=== PATIENT | female | born 1945 | race Caucasian/White ===

== ENCOUNTER → 2016-06-03 | Outpatient (CLI) | payer MEDICARE, BC ==
[~2016-06-03] MED LIST: ASPI325T6 PO; FE-TABS325 MG PO; FEMARA PO; FLUOXETINE; FOLIC ACID0.4 MG PO; GLUCOPHAGE XR500 M1 PO; GLUCOPHAGE1000 MG PO; LEVAQUIN 5500 MG/TA1 PO; LEVOTHYROXINE PO; LORTAB 5/500 501 TAB PO; LORTAB 7.5/5001 TAB PO; METFORMIN500 MG PO; NORCO 325 MG-51 TAB PO; NORCO 325 MG-7.1 TAB PO; OXYCODONE; PHENERGAN 25 TA25 MG PO; PRAVACHOL 20MG20 MG PO; PRAVASTATIN20 MG PO; SYNTHROID 0.0.025 MG PO; SYNTHROID0.05 MG/TA PO; TIROSINT50 MCG PO; ULTRAM 50MG TAB50 MG PO; VALIUM 5MG T5 MG/TAB PO; VITAMIN C PO; ZOFRAN 4MG T4 MG/TAB PO
== END ==
LOC: MC.RAD 07:40
DX: Z12.31 Encounter for screening mammogram for malignant neoplasm of breast (principal); Z85.3 Personal history of malignant neoplasm of breast; Z90.11 Acquired absence of right breast and nipple

== ENCOUNTER 2016-07-15 06:39 | Day surgery (SDC) | payer MEDICARE, BC ==
[~2016-07-15] VITALS: Ht 165.1 cm; Wt 71.9 kg
[2016-07-15 08:12] VITALS: BP 125/71; PULSE 73; TEMP 98.1
[2016-07-15 09:40] VITALS: BP 123/80; PULSE 78; TEMP 98.1
[2016-07-15 09:55] VITALS: BP 136/78; PULSE 67
[2016-07-15 10:05] VITALS: BP 121/85; PULSE 60
[2016-07-15 10:20] VITALS: BP 146/81; PULSE 71
[2016-07-15 10:40] VITALS: BP 126/62; PULSE 72
== END 2016-07-15 11:33 | disposition home or self-care (01) ==
LOC: SDCO 06:39
DX: D12.0 Benign neoplasm of cecum (principal); D12.4 Benign neoplasm of descending colon; K63.5 Polyp of colon; K64.0 First degree hemorrhoids; R19.7 Diarrhea, unspecified; E11.9 Type 2 diabetes mellitus without complications; E03.9 Hypothyroidism, unspecified; K58.9 Irritable bowel syndrome, unspecified; Z86.010 Personal history of colon polyps
CPT/HCPCS: OP; J2405; J2704; J7030

== ENCOUNTER → 2017-04-09 | Outpatient (CLI) | payer MEDICARE, BC | LOC: COL.RAD 12:03 | DX: N28.1 Cyst of kidney, acquired (principal) ==

== ENCOUNTER → 2017-06-05 | Outpatient (CLI) | payer MEDICARE, BC | LOC: MC.RAD 06:57 | DX: Z12.31 Encounter for screening mammogram for malignant neoplasm of breast (principal) ==

== ENCOUNTER → 2017-12-30 | Outpatient (CLI) | payer MEDICARE, BC | LOC: COL.RAD 15:17 | PROVIDERS: Family Medicine | DX: T58.91XA Toxic effect of carbon monoxide from unspecified source, accidental (unintentional), initial encounter (principal) ==

== ENCOUNTER → 2018-05-06 | Outpatient (CLI) | payer MEDICARE, BC | LOC: COL.RAD 07:30 | DX: N28.1 Cyst of kidney, acquired (principal); R39.11 Hesitancy of micturition ==

== ENCOUNTER → 2018-06-08 | Outpatient (CLI) | payer MEDICARE, BC | LOC: MC.RAD 07:40 | DX: Z12.31 Encounter for screening mammogram for malignant neoplasm of breast (principal) | CPT/HCPCS: G0279 ==

== ENCOUNTER → 2018-06-23 | Outpatient (CLI) | payer MEDICARE, BC | LOC: MHCPAIN 08:02 | DX: G89.29 Other chronic pain (principal); M47.817 Spondylosis without myelopathy or radiculopathy, lumbosacral region; M54.16 Radiculopathy, lumbar region; M53.3 Sacrococcygeal disorders, not elsewhere classified | CPT/HCPCS: G0463 ==

== ENCOUNTER → 2018-06-23 | Outpatient (CLI) | payer MEDICARE, BC ==
[2018-06-23 10:05] LABS: BASO % 0.5 % (0.0-2.0); EOS # 0.3 (0.0-0.7); GRAN # 4.3 (1.4-6.5); GRAN % 65.4 % (42.2-75.2); HEMATOCRIT 43.6 % (37.0-47.0); HEMOGLOBIN 14.1 g/dl (12.5-16.0); LYMPH # 1.4 (1.2-3.4); LYMPH % 21.1 % (20.0-51.0); MEAN CELL VOLUME 95 fl (80.0-100.0); MEAN CORPUSCULAR HEMOGLOBIN 31 pg (27.0-31.0); MEAN CORPUSCULAR HGB CONC 32 g/dl (33.0-37.0); MEAN PLATELET VOLUME 9.8 fl (7.4-10.4); MONO # 0.5 (0.1-0.6); MONO % 7.8 % (1.7-9.3); PLATELET COUNT 331 K/mm3 (130-400); RED BLOOD COUNT 4.58 M/mm3 (4.10-5.30); REDCELL DISTRIBUTION WIDTH-CV 12.4 % (11.5-14.5)
[2018-06-23 10:39] LABS: ERYTHROCYTE SEDIMENTATION RATE 1 mm/hr (0-30)
== END ==
LOC: COL.LAB 09:34
DX: T84.84XA Pain due to internal orthopedic prosthetic devices, implants and grafts, initial encounter (principal); Z96.651 Presence of right artificial knee joint

== ENCOUNTER → 2018-06-30 | Outpatient (CLI) | payer MEDICARE, BC | LOC: COL.RAD 08:41 | DX: T84.84XA Pain due to internal orthopedic prosthetic devices, implants and grafts, initial encounter (principal); Z96.651 Presence of right artificial knee joint | CPT/HCPCS: A9503 ==

== ENCOUNTER → 2018-08-18 | Outpatient (CLI) | payer MEDICARE, BC | LOC: MHCPAIN 08:46 | DX: G89.29 Other chronic pain (principal); M47.817 Spondylosis without myelopathy or radiculopathy, lumbosacral region; M54.16 Radiculopathy, lumbar region; M53.3 Sacrococcygeal disorders, not elsewhere classified | CPT/HCPCS: G0463 ==

== ENCOUNTER → 2018-08-27 | Outpatient (CLI) | payer MEDICARE, BC | LOC: MHCPAIN 08:15 | DX: M47.817 Spondylosis without myelopathy or radiculopathy, lumbosacral region (principal); M54.16 Radiculopathy, lumbar region | CPT/HCPCS: J1100; Q9967 ==

== ENCOUNTER → 2018-09-08 | Outpatient (CLI) | payer MEDICARE, BC | LOC: MHCPAIN 09:49 | DX: G89.29 Other chronic pain (principal); M47.817 Spondylosis without myelopathy or radiculopathy, lumbosacral region; M54.16 Radiculopathy, lumbar region; M53.3 Sacrococcygeal disorders, not elsewhere classified | CPT/HCPCS: G0463 ==

== ENCOUNTER → 2018-09-14 | Outpatient (CLI) | payer MEDICARE, BC | LOC: MHCPAIN 12:27 | DX: M47.817 Spondylosis without myelopathy or radiculopathy, lumbosacral region (principal); M54.16 Radiculopathy, lumbar region | CPT/HCPCS: J1040; Q9967 ==

== ENCOUNTER → 2018-11-11 | Outpatient (CLI) | payer MEDICARE, BC | LOC: MHCPAIN 09:47 | DX: G89.29 Other chronic pain (principal); M47.817 Spondylosis without myelopathy or radiculopathy, lumbosacral region; M54.16 Radiculopathy, lumbar region; M53.3 Sacrococcygeal disorders, not elsewhere classified | CPT/HCPCS: G0463 ==

== ENCOUNTER → 2018-12-21 | Outpatient (CLI) | payer MEDICARE, BC | LOC: MHCPAIN 09:21 | DX: G89.29 Other chronic pain (principal); M47.817 Spondylosis without myelopathy or radiculopathy, lumbosacral region; M54.16 Radiculopathy, lumbar region; M53.3 Sacrococcygeal disorders, not elsewhere classified | CPT/HCPCS: G0463 ==

== ENCOUNTER → 2019-07-01 | Outpatient (CLI) | payer MEDICARE, BC | LOC: MC.RAD 08:32 | DX: Z12.31 Encounter for screening mammogram for malignant neoplasm of breast (principal); Z90.11 Acquired absence of right breast and nipple ==

== ENCOUNTER 2019-07-27 06:38 | Day surgery (SDC) | payer MEDICARE, BC ==
[~2019-07-27] VITALS: Ht 165.1 cm; Wt 75.0 kg
[2019-07-27 07:08] VITALS: BP 138/78; PULSE 92; TEMP 99.1
[2019-07-27] MEDS ORDERED: NORCO 325 MG-51 TAB PO (07:12)
[2019-07-27 09:15] VITALS: BP 131/107; PULSE 95
--- NOTE | 2019-07-27 09:15 | NUR ---
Patient returns to bay 2 per cart and is awake and alert. Transfers from cart to recliner with one person assist. IV fluids continue to infuse and site is free of redness. Denies pain or nausea and is sipping on diet Pepsi and eating muffin.
[2019-07-27 09:30] VITALS: BP 133/71; PULSE 79
--- NOTE | 2019-07-27 09:30 | NUR ---
Resting and eating muffin and sipping on soda.
[2019-07-27 09:55] VITALS: BP 131/107; PULSE 95
--- NOTE | 2019-07-27 10:05 | NUR ---
IV was discontinued and Dr. Alfonso here to talk with the patient. All questions answered. Patient dresses self.
--- NOTE | 2019-07-27 10:09 | NUR ---
Dismissal instructions given and signed. Patient voices understanding of these.
--- NOTE | 2019-07-27 10:12 | NUR ---
Patient dismissed to home per private vehicle driven spouse and taken to the front door per wheelchair and assisted into vehicle by this RN with dismissal instructions in hand.
== END 2019-07-27 10:12 | disposition home or self-care (01) ==
LOC: SDCO 06:38
DX: Z12.11 Encounter for screening for malignant neoplasm of colon (principal); Z86.010 Personal history of colon polyps; D12.0 Benign neoplasm of cecum; D12.2 Benign neoplasm of ascending colon; D12.3 Benign neoplasm of transverse colon; D12.5 Benign neoplasm of sigmoid colon; K64.0 First degree hemorrhoids; Z79.899 Other long term (current) drug therapy; E11.9 Type 2 diabetes mellitus without complications; E03.9 Hypothyroidism, unspecified; K58.9 Irritable bowel syndrome, unspecified; Z85.3 Personal history of malignant neoplasm of breast; Z88.0 Allergy status to penicillin; Z88.7 Allergy status to serum and vaccine; Z88.8 Allergy status to other drugs, medicaments and biological substances; F41.0 Panic disorder [episodic paroxysmal anxiety]; F41.9 Anxiety disorder, unspecified; M43.00 Spondylolysis, site unspecified
CPT/HCPCS: J2704; J7030

== ENCOUNTER → 2020-07-04 | Outpatient (CLI) | payer MEDICARE, BC | LOC: MC.RAD 08:00 | DX: Z12.31 Encounter for screening mammogram for malignant neoplasm of breast (principal) ==

== ENCOUNTER → 2020-11-21 | Outpatient (CLI) | payer MEDICARE, BC | LOC: MHCPAIN 10:19 | DX: M47.816 Spondylosis without myelopathy or radiculopathy, lumbar region (principal); M54.5 Low back pain; M53.3 Sacrococcygeal disorders, not elsewhere classified | CPT/HCPCS: G0463 ==

== ENCOUNTER → 2021-08-01 | Outpatient (CLI) | payer MEDICARE, BC | LOC: MC.RAD 06:55 | DX: Z12.31 Encounter for screening mammogram for malignant neoplasm of breast (principal) ==

== ENCOUNTER → 2021-08-15 | Outpatient (CLI) | payer MEDICARE, BC | LOC: MHCPAIN 12:41 | DX: M47.817 Spondylosis without myelopathy or radiculopathy, lumbosacral region (principal); M53.3 Sacrococcygeal disorders, not elsewhere classified; M54.50 Low back pain, unspecified; G89.29 Other chronic pain | CPT/HCPCS: G0463 ==

== ENCOUNTER → 2021-08-20 | Outpatient (CLI) | payer MEDICARE, BC | LOC: MHCPAIN 11:29 | DX: M47.817 Spondylosis without myelopathy or radiculopathy, lumbosacral region (principal); M54.50 Low back pain, unspecified; M53.3 Sacrococcygeal disorders, not elsewhere classified | CPT/HCPCS: J1040; Q9967 ==

== ENCOUNTER → 2021-08-29 | Outpatient (CLI) | payer MEDICARE, BC | LOC: MHCPAIN 13:13 | DX: M47.817 Spondylosis without myelopathy or radiculopathy, lumbosacral region (principal); M53.3 Sacrococcygeal disorders, not elsewhere classified; G89.29 Other chronic pain | CPT/HCPCS: G0463 ==

== ENCOUNTER 2021-10-10 14:08 | Outpatient (RCR) | payer MEDICARE, BC | END 2021-10-23 | disposition home or self-care (01) | LOC: WSPT | DX: M47.896 Other spondylosis, lumbar region (principal) ==

== ENCOUNTER → 2021-11-22 | Outpatient (RCR) | payer MEDICARE, BC | END | disposition still patient (30) | LOC: WSPT | DX: M47.896 Other spondylosis, lumbar region (principal) ==

== ENCOUNTER 2021-12-11 12:45 | Outpatient (RCR) | payer MEDICARE, BC | END 2021-12-23 | disposition home or self-care (01) | LOC: WSPT | DX: M47.896 Other spondylosis, lumbar region (principal) ==

== ENCOUNTER 2022-01-21 15:00 | Outpatient (RCR) | payer MEDICARE, BC | END 2022-01-23 | disposition home or self-care (01) | LOC: WSPT | DX: M47.896 Other spondylosis, lumbar region (principal) ==

== ENCOUNTER 2022-01-24 10:13 | Outpatient (RCR) | payer MEDICARE, BC | END 2022-01-24 14:00 | disposition home or self-care (01) | LOC: WSPT 10:13 | DX: M47.896 Other spondylosis, lumbar region (principal) ==

== ENCOUNTER 2022-07-30 07:01 | Day surgery (SDC) | payer MEDICARE, BC ==
[~2022-07-30] VITALS: Ht 165.1 cm; Wt 75.1 kg
[2022-07-30 09:03] VITALS: BP 115/73; PULSE 86; TEMP 97
--- NOTE | 2022-07-30 09:03 | NUR ---
0903 PATIENT RETURNS TO ROOM 1 VIA CART. PATIENT IS ALERT AND ORIENTED. PATIENT AMBULATES TO RECLINER WITH THE ASSITANCE OF 2 NURSES. RESPIRATIONS EVEN AND UNLABORED. VITAL SIGNS OBTAINED. PATIENT REQUESTED A MUFFIN, WATER AND COFFEE. NO DIFFICULTIES SWALLOWING. 09 DOCTOR IN TO SPEAK WITH PATIENT. 0940 DISCHARGE INSTRUCTIONS REVIEWED WITH PATIENT. PATIENT VERBALIZED UNDERSTANDING. 0935 DISCONTINUED IV FORM LEFT AC WITH NO DIFFICULTIES. 0947 PATIENT DISCHARGES FROM UNIT VIA WHEELCHAIR IN STABLE CONDITION TO PERSONAL VEHICLE.
[2022-07-30 09:20] VITALS: BP 130/65; PULSE 79
[2022-07-30 09:35] VITALS: BP 127/84; PULSE 75
[2022-07-30 11:47] VITALS: BP 125/79; PULSE 104; TEMP 97
== END 2022-07-30 09:47 | disposition home or self-care (01) ==
LOC: SDCO 07:01
DX: Z12.11 Encounter for screening for malignant neoplasm of colon (principal); D12.4 Benign neoplasm of descending colon; D12.5 Benign neoplasm of sigmoid colon; K57.30 Diverticulosis of large intestine without perforation or abscess without bleeding; K62.4 Stenosis of anus and rectum
CPT/HCPCS: J2704; J7120

== ENCOUNTER 2022-08-12 12:45 | Outpatient (RCR) | payer MEDICARE, BC | END 2022-08-23 | disposition home or self-care (01) | LOC: WSPT | DX: M54.50 Low back pain, unspecified (principal) ==

== ENCOUNTER → 2022-09-12 | Outpatient (CLI) | payer MEDICARE, BC | LOC: MC.RAD 07:00 | DX: Z12.31 Encounter for screening mammogram for malignant neoplasm of breast (principal); Z90.11 Acquired absence of right breast and nipple; Z85.3 Personal history of malignant neoplasm of breast ==